=== PATIENT | female | born 1975 | race Caucasian/White ===

== ENCOUNTER 2018-12-02 20:45 | Emergency (ER) | payer BC ==
[2018-12-02 20:56] VITALS: BP 123/81
--- NOTE | 2018-12-02 21:25 | UC ---
Back Pain HPI - HPI Summary HPI Summary: 43 y/o female presents to the urgent care c/o intermittent RT lower lower flank pain underneath the bra for the past 2 weeks. Pain has become constant in the past 2 days, spasmodic and sharp w/ certain movement 7/10 w/o any radiation, swelling or bruise. Pt has been taken Ibuprofen 600mg PO to alleviate symptoms. Pt denies fever, urinary symptoms, abdominal pain, SOB, chest pain, cough, dizziness, N/V/D, vaginal discharge, Hx of kidney stones. Hx of hysterectomy. - History of Current Complaint Chief Complaint: UCGU Stated Complaint: BACK, FLANK PAIN Time Seen by Provider: 12/02/18 21:08 Hx Obtained From: Patient Onset/Duration: Gradual Onset, Lasting Weeks - 2 weeks, Still Present, Worse Since Timing: Intermittent, Lasting Seconds - w/ certain movements Severity Initially: Mild Severity Currently: Moderate Pain Intensity: 7 Pain Scale Used: 0-10 Numeric Back Pain: Is Discrete @ - Rt flank pain Character: Dull, Spasmodic Aggravating Factor(s): Movement, Bending Alleviating Factor(s): Rest, OTC Meds - Naproxen PO Associated Signs And Symptoms: Positive: Flank Pain - Rt flank pain. Her bra feels uncomfortably. Negative: Swelling, Redness, Bruising, Fever, Numbness, Tingling - Allergies/Home Medications Allergies/Adverse Reactions: Allergies Allergy/AdvReac Type Severity Reaction Status Date / Time amoxicillin [From Augmentin] Allergy Severe Rash And Verified 12/02/18 20:56 Itching clavulanic acid Allergy Severe Rash And Verified 12/02/18 20:56 [From Augmentin] Itching Home Medications: Home Medications Cholecalciferol (Vitamin D3) [Vitamin D3] 1,000 unit PO 12/02/18 [History] Ibuprofen 600 mg PO 12/02/18 [History] Multivitamin [Multivitamins] 1 cap PO 12/02/18 [History] Phentermine HCl 37.5 mg PO 12/02/18 [History] PMH/Surg Hx/FS Hx/Imm Hx Previously Healthy: Yes - Pt denies PMHX - Surgical History Surgical History: Yes Surgery Procedure, Year, and Place: TUBAL 07/1998 [facility] [place]EEP 2007 PARTIAL HYSTERECTOMY 2009 [facility] [place] sinus surgery. LEFT FOOT - Family History Known Family History: Positive: None - Pt denies FMHX - Social History Occupation: Employed Full-time Lives: With Family Alcohol Use: Rare Substance Use Type: None Smoking Status (MU): Never Smoked Tobacco Review of Systems All Other Systems Reviewed And Are Negative: Yes Constitutional: Positive: Negative Skin: Positive: Negative Eyes: Positive: Negative ENT: Positive: Negative Respiratory: Positive: Negative Cardiovascular: Positive: Negative Gastrointestinal: Positive: Negative Genitourinary: Positive: Negative Motor: Positive: Negative Neurovascular: Positive: Negative Musculoskeletal: Positive: Decreased ROM - RT side of mid back, Other: - RT flank pain Neurological: Positive: Negative Psychological: Positive: Negative Is Patient Immunocompromised?: No Physical Exam - Summary Physical Exam Summary: Vital Signs Reviewed: Yes Appearance: Well-Appearing, Well-Nourished, obese female sitting in the examining table w/o any apparent distress. Eyes: Positive: Conjunctiva Clear - PERRLA, EOMI. ENT: Positive: Normal ENT inspection, Hearing grossly normal, Pharynx normal, TMs normal, Uvula midline Neck: Positive: Supple, Nontender, No Lymphadenopathy Respiratory: Positive: Chest non-tender, Lungs clear, Normal breath sounds, No respiratory distress Cardiovascular: Positive: RRR, No Murmur, Pulses Normal, Brisk Capillary Refill Abdomen Description: Positive: Nontender, No Organomegaly, Soft. Negative: CVA Tenderness (R), CVA Tenderness (L) Bowel Sounds: Positive: Present Musculoskeletal: Positive: Strength Intact, BACK: Patient walked into the urgent care room with symmetric ambulation, No signs of limping, antalgic, able to bear weight. No signs of trauma, No masses palpated. Point tenderness RT posterior mid back at the level of Rib 12 w/o any swelling , bruise or ecchymosis, No CVAT, no flank ecchymosis . No sacroiliac notch tenderness, No saddle anesthesia.ROM: limited due to pain on lateral bending, Straight Leg Raise: negative. Patellar reflexes: brisk, symmetric Muscle strength lower extremities. Dorsiflexion/ plantar flexion of ankles. Heel/ toe walk. Lower extremities: Femoral, popliteal, posterior tibial, and dorsalis pedis pulses WNL. Pt refuse rectal exam Neurological: Positive: Alert, Muscle Tone Normal Psychological Exam: Normal Skin Exam: Normal Triage Information Reviewed: Yes Vital Signs: Initial Vital Signs Temp 98.2 F 12/02/18 20:53 Pulse 81 12/02/18 20:53 Resp 18 12/02/18 20:53 BP 123/81 12/02/18 20:53 Pulse Ox 99 12/02/18 20:53 Back Pain Course/Dx - Course Course Of Treatment: 43 y/o female presents to the urgent care c/o intermittent RT lower lower flank pain underneath the bra for the past 2 weeks. Pain has become constant in the past 2 days, spasmodic and sharp w/ certain movement 7/10 w/o any radiation, swelling or bruise. Pt has been taken Ibuprofen 600mg PO to alleviate symptoms. Pt denies fever, urinary symptoms, abdominal pain, SOB, chest pain, cough, dizziness, N/V/D, vaginal discharge, Hx of kidney stones. Hx of hysterectomy. Hx obtained. Pt is hemodynamically stable, Vitals:WNL, UA ordered:negative. PE: Point tenderness RT posterior mid back at the level of Rib 12 w/o any swelling , bruise or ecchymosis, No CVAT, no flank ecchymosis on examination. Pt w/ possible muscle strain. Pt Rx flexeril PO and advised to continue taken Ibuprofen PO to alelviate pain. Patient was instructed to the f/u with orthopedic from [facility] Medicine if symptoms do not improve or worsen. Patient understands and agrees. Patient is able to ambulate freely w/o aid or limp. Plan of care was discussed with the patient and patient understands and agrees. All questions were answered at patient satisfaction. Pt left clinic hemodynamically stable. - Differential Dx/Diagnosis Differential Diagnosis/HQI/PQRI: Fracture, Renal Colic, Strain, Sprain, Other - UTI Provider Diagnosis: Strain of muscle and tendon of back wall of thorax, initial encounter, Right flank pain Discharge ED - Sign-Out/Discharge Documenting (check all that apply): Patient Departure - d/C home All imaging exams completed and their final reports reviewed: No Studies - Discharge Plan Condition: Stable Disposition: HOME Prescriptions: Cyclobenzaprine TAB* [Flexeril 10 MG TAB*] 10 mg PO TID PRN #20 tab PRN Reason: Spasms - Muscle Patient Education Materials: Muscle Strain (ED) Referrals: Sonja Chaves MD [Primary Care Provider] - 3 Days [facility] [Provider Group] - 3 Days Additional Instructions: 1- Please continue taking Naproxen PO as directed after meals for pain. 2- Take Flexeril PO as directed for muscle spasm. first dose givne at the clinic tonight. Please do not drive while taking the medication. 3- Avoid strenuous exercise of heavy lifting. 4- Please follow up with Orthopedic Dr from Sports medicine or your PCP in 3 days if not improvement of symptoms, for further management. - Billing Disposition and Condition Condition: STABLE Disposition: Home - Attestation Statements Provider Attestation: Per institutional requirements, I have reviewed the chart, however, I was not consulted specifically or made aware of this patient by the midlevel provider. I did not personally evaluate, interact with , or disposition this patient.
[2018-12-02] MEDS ORDERED: Cyclobenzaprine TAB* 10 MG PO ONE (21:44)
== END 2018-12-02 22:00 | disposition home or self-care (01) ==
LOC: UCEAST 20:45
DX: S29.012A Strain of muscle and tendon of back wall of thorax, initial encounter (principal); X58.XXXA Exposure to other specified factors, initial encounter; Y92.9 Unspecified place or not applicable
CPT/HCPCS: 81003; 99212; A9270-GY; G0463